=== PATIENT | female | born 1995 | race American Indian/Alaskan Native ===

== ENCOUNTER 2019-11-11 03:28 | Outpatient (CLI) | payer OTHER ==
[2019-11-11 03:51] VITALS: BP 127/69
== END 2019-11-11 04:30 | disposition home or self-care (01) ==
LOC: TRG 03:28 → APU 03:31 → TRG 04:30
PROVIDERS: ATTEND Obstetrics & Gynecology
DX: O46.8X3 Other antepartum hemorrhage, third trimester (principal); Z3A.36 36 weeks gestation of pregnancy
CPT/HCPCS: 59025

== ENCOUNTER 2019-11-19 12:09 | Outpatient (CLI) | payer OTHER ==
[2019-11-19] MEDS ORDERED: LACTATED RINGERS 500 ML IV ONE (12:29)
[2019-11-19 13:31] LABS: Bilirubin,Urine NEG (Negative); Blood,Urine NEG (Negative); Color,Urine Yellow (Yellow); Mucus,Urine 2+ /HPF; Protein,Urine <15 mg/dL mg/dL (Negative)
[2019-11-19] MEDS ORDERED: LIDOCAINE-MPF (1%) 10 MG/1 ML VIAL 5 ML INFILTRATI ONE (15:16)
[2019-11-19 15:55] VITALS: BP 117/61
--- NOTE | 2019-11-19 17:25 | Ultrasound Report ---
ULTRASOUND OBSTETRIC LIMITED ULTRASOUND BIOPHYSICAL PROFILE INDICATION / CLINICAL INFORMATION: decreased FM. COMPARISON: None available. FINDINGS: BREATHING MOVEMENT = 2 GROSS BODY MOVEMENT = 2 TONE = 2 QUALITATIVE AMNIOTIC FLUID VOLUME = 2 TOTAL BIOPHYSICAL SCORE = 8/8 AMNIOTIC FLUID INDEX (cm) = 10.7 HEART RATE (beats per minute): 122 ADDITIONAL FINDINGS: None. IMPRESSION: 1. Biophysical Score = 8/8 Signer Name: Abhilash Ugalde MD Signed: 11/19/2019 5:20 PM Workstation Name: [email or web address]
== END 2019-11-19 18:20 | disposition home or self-care (01) ==
LOC: TRG 12:09 → APU 12:10 → TRG 18:20
PROVIDERS: ATTEND Obstetrics & Gynecology
DX: O36.8130 Decreased fetal movements, third trimester, not applicable or unspecified (principal); O13.3 Gestational [pregnancy-induced] hypertension without significant proteinuria, third trimester; R51 Headache; Z3A.37 37 weeks gestation of pregnancy
CPT/HCPCS: 59025; 76819; 81001; 96372; J0696; J7120

== ENCOUNTER 2021-01-22 17:25 | Outpatient (CLI) | payer OTHER ==
[2021-01-22] MEDS ORDERED: LACTATED RINGERS 1,000 ML IV ONE (18:53)
[2021-01-22 19:27] LABS: Hematocrit 33.5 % (30.3-42.9); Mean Corpuscular HGB Conc 33 % (30-34); Mean Corpuscular Volume 75 fl (79-97); Platelet Count 259 K/mm3 (140-440); Red Cell Distribution Width 13.8 % (13.2-15.2)
[2021-01-23 09:15] VITALS: BP 138/70
== END 2021-01-23 09:27 | disposition home or self-care (01) ==
LOC: TRG 17:25 → APU 17:26 → LD 22:10 → TRG 01-23 09:27
PROVIDERS: ATTEND Obstetrics & Gynecology
DX: Z34.93 Encounter for supervision of normal pregnancy, unspecified, third trimester (principal); Z3A.37 37 weeks gestation of pregnancy
CPT/HCPCS: 36415; 59025; 85027; 86592; 86850; 86900; 86901